=== PATIENT | female | born 1950 | race Caucasian/White ===

== ENCOUNTER 2016-10-02 18:55 | Emergency (ER) | payer OTHER ==
[~2016-10-02] VITALS: Ht 162.6 cm; Wt 90.7 kg
[2016-10-02 19:08] VITALS: BP 128/84
[2016-10-02 19:30] LABS: ABSOLUTE BASOPHIL COUNT 0 /CUMM (0.0-0.2); ABSOLUTE EOSINOPHIL COUNT 0 /CUMM (0.0-0.7); ABSOLUTE GRANULOCYTE CT 1.4 /CUMM (1.4-6.5); ABSOLUTE LYMPH COUNT 0.7 /CUMM (1.2-3.4); ABSOLUTE MONOCYTE COUNT 0.3 /CUMM (0.10-0.60); BASOPHIL % 0.4 % (0.0-2.0); EOSINOPHIL % 1.8 % (0-5); GRANULOCYTE % 56.8 % (42.2-75.2); HEMATOCRIT 38.2 % (37-47); MEAN CORPUSCULAR HGB 28.6 PG (27.0-31.0); MEAN CORPUSCULAR HGB CONC 34.6 G/DL (33.0-37.0); MEAN CORPUSCULAR VOLUME 82.8 FL (81.0-99.0); MEAN PLATELET VOLUME 8.7 FL (7.4-10.4); PLATELET COUNT 103 /CUMM (130-400); RBC DISTRIBUTION WIDTH 13.2 % (11.5-14.5); RED BLOOD CELL CT 4.62 /CUMM (4.20-5.40); WHITE BLOOD CELL COUNT 2.5 /CUMM (4.8-10.8)
--- NOTE | 2016-10-02 20:25 | RADIOLOGY REPORT ---
EXAMINATION: XR CHEST CLINICAL INFORMATION: Cough and fever COMPARISON: None TECHNIQUE: 2 views of the chest were obtained. FINDINGS: No significant abnormality is noted involving the heart, lungs, mediastinum, bony thorax or soft tissues. IMPRESSION: Unremarkable examination.
--- NOTE | 2016-10-02 20:40 | ED INFLUENZA/URI COMPLAINT ---
History of Present Illness General Chief Complaint: General Adult Stated Complaint: PT HAS A COUGH Source: patient, family Exam Limitations: language barrier Vital Signs & Intake/Output Vital Signs & Intake/Output Vital Signs Date Time Temp Pulse Resp B/P B/P Pulse O2 O2 Flow FiO2 Mean Ox Delivery Rate 10/02 1918 101.3 10/03 1907 101.3 105 15 128/84 94 Room Air Room Air Allergies Coded Allergies: NSAIDS (Non-Steroidal Anti-Inflamma ("BECAUSE OF KIDNEY FUNCTIONS" 10/02/16) Reconcile Medications Amoxicillin 875 MG TABLET 1 TAB PO BID INFECTION Triage Note: PT TO ED WITH DAUGHTER FOR URI S/S SINCE FRIDAY AFTER SHE CAME BACK FROM [place]. PT ALSO COMPLAINS OF SORE THROAT. FEBRILE IN TRIAGE 101.3. -CP, +SOB. NO ACUTE DISTRESS NOTED. DAGUTHER TO INTERPRET. Triage Nurses Notes Reviewed? yes Onset: Abrupt Duration: day(s): (2) Timing: recent history Severity: mild, moderate No Modifying Factors: none Associated Symptoms: cough, fever/chills, sinus infection HPI: This is a 66-year-old female with history of hypertension and chronic kidney disease presents to the ER for chief complaint of fever, sore throat and cough. She just traveled from [place]. Patient states that the inside of the plane was very cold. She received Tylenol in triage and is now sweating. She denies feeling shortness of breath. No chest pain. Denies abdominal pain nausea or vomiting. Past History Travel History Traveled to [place] past 21 day No Medical History Any Pertinent Medical History? 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 No Review of Systems Review of Systems Constitutional: Reports: chills, fever. EENTM: Reports: throat pain. Respiratory: Reports: cough. Denies: short of breath, sputum production. Cardiovascular: Denies: chest pain. GI: Denies: abdominal pain. Genitourinary: Reports: no symptoms. Musculoskeletal: Reports: no symptoms. Skin: Reports: no symptoms. Neurological/Psychological: Reports: no symptoms. Hematologic/Endocrine: Denies: bruising, bleeding, polyuria, polydipsia. Immunologic/Allergic: Denies: splenectomy. All Other Systems: Reviewed and Negative Physical Exam Physical Exam General Appearance: well developed/nourished, alert, awake, mild distress Head: atraumatic, normal appearance Eyes: Bilateral: normal appearance, PERRL, EOMI. Ears, Nose, Throat: moist mucous membrane, hearing grossly normal, Tympanic normal, pharyngeal erythema Neck: normal inspection, supple, full range of motion Respiratory: normal breath sounds, chest non-tender, no respiratory distress Cardiovascular: regular rate/rhythm Peripheral Pulses: 2+ radial (R), 2+ radial (L) Gastrointestinal: soft, non-tender Extremities: normal inspection, normal capillary refill, normal range of motion, no edema Neurologic/Psych: no motor/sensory deficits, awake, alert, oriented x 3 Skin: intact, normal color, warm/dry Core Measures Severe Sepsis Present: No Septic Shock Present: No Progress Differential Diagnosis: pneumonia, pharyngitis, URI Plan of Care: Orders Procedure Date/time Status THROAT CULTURE W/QUICK STREP 10/02 1912 Complete TROPONIN LEVEL 10/02 1912 Complete COMPREHENSIVE METABOLIC PANEL 10/02 1912 Complete CBC WITHOUT DIFFERENTIAL 10/02 1912 Complete EKG 10/02 1912 Active Laboratory Tests 10/02/161921: Anion Gap 9, Estimated GFR 38 L, BUN/Creatinine Ratio 14.3, Glucose 103 H, Calcium 8.6, Total Bilirubin 0.4, AST 48 H, ALT 58 H, Alkaline Phosphatase 117 , Troponin I < 0.01, Total Protein 6.8, Albumin 4.0, Globulin 2.8, Albumin/ Globulin Ratio 1.4, CBC w Diff NO MAN DIFF REQ, RBC 4.62, MCV 82.8, MCH 28.6, RDW 13.2, MPV 8.7, Gran % 56.8, Lymphocytes % 28.5, Monocytes % 12.5 H, Eosinophils % 1.8, Basophils % 0.4, Absolute Granulocytes 1.4, Absolute Lymphocytes 0.7 L, Absolute Monocytes 0.3, Absolute Eosinophils 0, Absolute Basophils 0, PUBS MCHC 34.6 Positive strep throat. Creatinine is 1.4, patient has history of chronic kidney disease. Chest x-ray is within normal limits. (ANAND BARRERA,[place]) Diagnostic Imaging: Viewed by Me: Radiology Read. Discussed w/RAD: Radiology Read. CXR Impression: PATIENT: OMAR DUNN PRESENT AGE: 66 PATIENT ACCOUNT NO: [id number] : 51 LOCATION: [facility] [place] ORDERING PHYSICIAN: GRECIA VALENTINE DO (TBS) SERVICE DATE: 10/02/16 EXAM TYPE: RAD - XRY- CHEST XRAY, PA AND LATERAL EXAMINATION: XR CHEST CLINICAL INFORMATION: Cough and fever COMPARISON: None TECHNIQUE: 2 views of the chest were obtained. FINDINGS: No significant abnormality is noted involving the heart, lungs, mediastinum, bony thorax or soft tissues. IMPRESSION: Unremarkable examination. DICTATED BY: RICCARDO GUZMAN MD DATE/TIME DICTATED:10/02/162020 HEALTH POLICY MANAGER: MARKUS DATE/TIME TRANSCRIBED:10/02/162020 CONFIDENTIAL, DO NOT COPY WITHOUT APPROPRIATE AUTHORIZATION. <Electronically signed in Other Vendor System> SIGNED BY: RICCARDO GUZMAN MD 10/02/162024 Initial ED EKG: none Departure Departure Time of Disposition: 2045 Disposition: HOME OR SELF CARE Condition: Stable Clinical Impression Primary Impression: Strep pharyngitis Referrals: PATIENT HAS NO PRIMARY CARE DR (PCP/Family) Additional Instructions: Take Tylenol as needed every 4-6 hours for fever or pain. Drink plenty of fluids. Take the amoxicillin as directed. Prescription at the pharmacy in [place]. Return for any changing or worsening symptoms. Departure Forms: Customer Survey General Discharge Information Prescriptions: Current Visit Scripts Amoxicillin 1 TAB PO BID #19 TAB
[2016-10-02] MEDS ORDERED: AMOXICILLIN875 M1 PO (20:47)
== END 2016-10-02 20:46 ==
LOC: ERH 18:55
PROVIDERS: Emergency Medicine
DX: J02.0 Streptococcal pharyngitis (principal)
CPT/HCPCS: 93005; 93010